=== PATIENT | male | born 1940 | race Caucasian/White ===

== ENCOUNTER → 2024-04-29 | Day surgery (SDC) | payer MEDICARE ==
[~2024-04-29] MED LIST: ACETAMINOPHEN 1000 MG/100 ML 100 ML IV ONE; ALLOPURINOL300 MG PO; AMIODARONE HCL100 MG PO; ARICEPT10 MG PO; CEFUROXIME250 MG PO; CIPRO250 MG PO; DEXAMETHASONE SOD PHOS INJ 4 MG/ML SDV ONE; DIAZEPAM5 MG PO; DICYCLOMINE HCL20 MG PO; DOCUSATE SODIU100 MG PO; DOXYCYCLINE HY100 MG PO; ELIQUIS5 MG PO; FENTANYL CITRATE/PF 100MCG/2 ML INJ ONE; FENTANYL1 EAC1; FENTANYL1 EACH; FLOMAX0.4 MG PO; FOLIC ACID-VIT1 EACH PO; GLIPIZIDE5 MG PO; GLYCOPYRROLATE INJ 0.2 MG/ML VIAL ONE; HYDROCODON-ACE1 EAC9; LAC-HYDRIN FIV226 GM TOP; LEVOFLOXACIN250 MG PO; LIDOCAINE HCL 2% LOCAL INJ 5 ML SDV VIAL INJ ONE; LIPITOR20 MG PO; LISINOPRIL10 MG PO; METHENAMINE HIPP1 GM; METOLAZONE5 MG PO; METOPROLOL TART25 MG PO; NEURONTIN300 MG PO; NITROFURANTOIN50 MG PO; OMEPRAZOLE40 MG PO; ONDANSETRON HCL INJ 2MG/ML 2ML 2 MG/ML VIAL ONE; PENICILLIN V P500 MG PO; PERCOCET 10-321 EACH PO; POTASSIUM CHLO20 ME1 PO; PROPOFOL IV EMULSION 10 MG/ML 20 ML VIAL ONE; PYRIDIUM200 MG PO; SEVOFLURANE INHAL SOLN 250 ML PEN BTL ONE; TRIAMCINOLONE A15 G1 TOP; VITAMIN B-1100 M1 PO; VITAMIN B-121000 MCG PO; VITAMIN D330 ML; XARELTO20 MG PO
[2024-04-29] MEDS: CEFTRIAXONE 1 GM VIAL ONE (07:39)
[2024-04-29] MEDS: LACTATED RINGER'S 1,000 ML ONE (07:40)
[2024-04-29 10:31] VITALS: BP 141/73; PULSE 60; RESP 18; O2SAT 98
== END | disposition home or self-care (01) ==
LOC: OR 05:00
PROVIDERS: ATTEND Urology
DX: N32.0 Bladder-neck obstruction (principal); N47.1 Phimosis; R33.9 Retention of urine, unspecified; I49.9 Cardiac arrhythmia, unspecified; I11.0 Hypertensive heart disease with heart failure; I50.9 Heart failure, unspecified; E78.5 Hyperlipidemia, unspecified; K21.9 Gastro-esophageal reflux disease without esophagitis; E66.01 Morbid (severe) obesity due to excess calories; Z88.6 Allergy status to analgesic agent; Z79.899 Other long term (current) drug therapy; Z79.84 Long term (current) use of oral hypoglycemic drugs; Z79.02 Long term (current) use of antithrombotics/antiplatelets; Z68.41 Body mass index [BMI] 40.0-44.9, adult; Z87.891 Personal history of nicotine dependence
CPT/HCPCS: 52276; 54161; 88304; 93005; J0131; J0696; J1100; J2003; J2405; J2704; J3010; J7121